=== PATIENT | male | born 1945 | race Caucasian/White ===

== ENCOUNTER 2019-06-22 07:43 | Outpatient (CLI) | payer MEDICARE, SELFPAY ==
--- NOTE | 2019-06-22 08:00 | USCV_ITS ---
Enrique Hodge Age: 73 Gender: M : 1945 Exam Date: 06/22/2019 08:01 Ordering Phys: NOT ON FILE, DOCTOR XX Technologist: Elizabeth Osman [place]am [place] [facility] [place]ication: SCREENING FOR CARDIOVASCULAR DISORDERS HISTORY: Diameter (cm) AP x Transverse x Length Velocity (cm/s) Waveform Prox Aorta: 2.52 x 2.57 x 61.20 Mid Aorta: 2.26 x 1.84 x 105.30 Distal Aorta: 1.78 x 1.66 x 81.80 Right Iliac Prox: 1.31 x 1.24 x 72.10 Left Iliac Prox: x x 47.10 Stent Prox Landing x x Aneurysmal Sac Max x x Lt Lat Sac Dim Rt Lat Sac Dim Stent Dist Landing x x Right Iliac Stent x x Left Iliac Stent x x Right Renal Art Left Renal Art FINDINGS: CONCLUSIONS No evidence of abdominal aortic or bilateral iliac aneurysm. 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 Taurus Sher MD (Electronically Signed) Final Date: 22 June 2019 15:40 S
== END 2019-06-22 07:44 | disposition home or self-care (01) ==
LOC: RAD 07:50
PROVIDERS: PCP Registered Nurse; Visit Provider Registered Nurse
DX: I70.0 Atherosclerosis of aorta (principal); Z13.6 Encounter for screening for cardiovascular disorders
CPT/HCPCS: 76706

== ENCOUNTER 2019-07-05 06:16 | Day surgery (SDC) | payer MEDICARE, SELFPAY ==
[2019-07-04 09:51] VITALS: BMI 28.3
[2019-07-05] MEDS: sodium chloride 0.9% 1,000 ML 30 ML (06:46)
[2019-07-05 06:48] VITALS: BP 160/95; PULSE 75; RESP 18; TEMP 36.6; O2SAT 99
--- NOTE | 2019-07-05 07:00 | ANES.PREANE2 ---
Pre-Anesthetic Assessment Pre-Anesthetic Assessment: Height/Weight: Height 1.75 m Weight 87.09 kg Temp Pulse Resp BP Pulse Ox 98 F 75 18 160/95 99 07/05/19 06:48 07/05/19 06:48 07/05/19 06:48 07/05/19 06:48 07/05/19 06:48 Preop Diagnosis: Screening colonoscopy Proposed Procedure: Operation Date: 07/05/19 07:15 Proposed Procedures p Colonoscopy(Not Applicable) - Luis Parra MD Familial anesthetic complications: denies Was Beta Joseph taken within 24 hours: N/A Last intake: Intake Last Liquid Date 07/04/19 Last Liquid Time 20:00 Last Solid Date 07/03/19 Last Solid Time 22:00 Social: Social History: No alcohol and No tobacco Exam: Pre-Anes Outpt Exam: alert, oriented x 3 and clear to auscultation bilaterally Airway: Submandibular: WNL Cervical ROM: WNL MP: 1 Pulmonary: Pulmonary: None reported CV/HEM: CV/HEM: HTN : : None reported Hepatic: Hepatic: None reported GI: GI: None reported Metabolic: Metabolic: None reported Musc/skel: Musc/skel: OA/DJD and None reported Neuropsych: Neuropsych: None reported Anesthetic Plan: ASA status: 2 Anesthesia: Anesthesia Evaluation and MAC Risk of > 500 ml blood loss (7ml/kg in children): No PFSH Anesthesia PFSH: Social History Smoking and tobacco status: never smoked Second hand smoke exposure: No Smoking risk assessment/counseling performed?: No Alcohol intake: current Alcohol intake frequency: holidays/special occasions only Desire information about alcohol rehabilitation?: No Counseling given: No Desire information about substance/drug rehabilitation?: No Counseling given: No Data Anesthesia Cardiac Studies: No Data to Display
--- NOTE | 2019-07-05 07:21 | PM.HPUD ---
H&P update H&P Update: DATE OF SURGERY/PROCEDURE: 07/05/19 DATE H&P PERFORMED: 06/22/19 H&P UPDATE INFORMATION: H&P completed within last 30 days and No changes to prior documentation PREOP DIAGNOSIS: Screening colonoscopy PRIMARY INDICATION FOR PROCEDURE: Screening colonoscopy PLANNED PROCEDURE: Operation Date: 07/05/19 07:15 Proposed Procedures p Colonoscopy(Not Applicable) - Luis Parra MD Full H&P Perinent History: Medical/Surgical History: Medical History (Updated 06/23/19 @ 18:34 by Luis Parra MD) Hypertension (Acute) Family History: Family History (Updated 06/22/19 @ 10:35 by Gonzales Cooper) Mother Cancer Sister Diabetes Denies family history of CAD (coronary artery disease) Chronic kidney disease (CKD) Anesthesia complication Bleeding disorder Lung disease Hypertension Stroke Social History: Social History Smoking and tobacco status: never smoked Second hand smoke exposure: No Smoking risk assessment/counseling performed?: No Alcohol intake: current Alcohol intake frequency: holidays/special occasions only Desire information about alcohol rehabilitation?: No Counseling given: No Desire information about substance/drug rehabilitation?: No Counseling given: No
--- NOTE | 2019-07-05 07:41 | ANE.PACU2 ---
 Inpatient post-anesthesia follow up: Airway intact: Yes Vital signs: Temperature 98 F Pulse Rate 75 Respiratory Rate 18 Blood Pressure 160/95 Pulse Oximetry 99 Oxygen Delivery Me thod Oxygen Flow Rate Fraction of Inspir ed Oxygen Hydration adequate: Yes Nausea and vomiting: No Pain level: 2 Mental status: Baseline
[2019-07-05 07:47] VITALS: BP 90/64; PULSE 68; RESP 16; TEMP 36.5; O2SAT 96
== END 2019-07-05 08:07 | disposition home or self-care (01) ==
PROVIDERS: Visit Provider Surgery
PROC: 0DJD8ZZ Inspection of Lower Intestinal Tract, Via Natural or Artificial Opening Endoscopic (ICD-10-PCS; CPT 45378; principal; 2019-07-05 07:15)
DX: Z12.11 Encounter for screening for malignant neoplasm of colon (principal); Z82.49 Family history of ischemic heart disease and other diseases of the circulatory system; Z83.3 Family history of diabetes mellitus; K57.30 Diverticulosis of large intestine without perforation or abscess without bleeding; I10 Essential (primary) hypertension; M19.90 Unspecified osteoarthritis, unspecified site
CPT/HCPCS: 12345; G0121; J2704; J7030